=== PATIENT | female | born 1975 | race Caucasian/White ===

== ENCOUNTER → 2023-04-09 08:39 | Outpatient (REF) | payer OTHER, SELFPAY | LOC: WDC 08:39 | PROVIDERS: ATTENDING PHYSICIAN Obstetrics & Gynecology; FAMILY PHYSICIAN Nurse Practitioner Adult Health | DX: Z12.31 Encounter for screening mammogram for malignant neoplasm of breast (principal) | CPT/HCPCS: 77063; 77067 ==

== ENCOUNTER → 2024-08-11 11:10 | Outpatient (REF) | payer OTHER, SELFPAY | LOC: WDC 11:10 | PROVIDERS: ATTENDING PHYSICIAN Student in an Organized Health Care Education/Training Program; FAMILY PHYSICIAN Nurse Practitioner Adult Health | DX: Z12.31 Encounter for screening mammogram for malignant neoplasm of breast (principal) | CPT/HCPCS: 77063; 77067 ==

== ENCOUNTER → 2024-11-26 11:44 | Outpatient (REF) | payer OTHER, SELFPAY | LOC: HWRAD 11:44 | PROVIDERS: ATTENDING PHYSICIAN Nurse Practitioner Adult Health | DX: J40 Bronchitis, not specified as acute or chronic (principal) | CPT/HCPCS: 71046 ==

== ENCOUNTER → 2024-12-23 08:36 | Outpatient (REF) | payer OTHER, SELFPAY | LOC: WDC 08:36 | PROVIDERS: ATTENDING PHYSICIAN Student in an Organized Health Care Education/Training Program; FAMILY PHYSICIAN Nurse Practitioner Adult Health | DX: R92.333 Mammographic heterogeneous density, bilateral breasts (principal) | CPT/HCPCS: 76641 ==